=== PATIENT | female | born 1980 | race Caucasian/White ===

== ENCOUNTER 2019-12-21 09:31 | Emergency (ER) | payer BC, OTHER ==
[2019-12-21] MEDS ORDERED: DIAZEPAM 5 MG TABLET ONE (10:47)
[2019-12-21] MEDS ORDERED: FAMOTIDINE 20 MG TAB ONE (10:48)
[2019-12-21] MEDS ORDERED: dexAMETHasone 4 MG TAB ONE ×2 (10:48)
--- OUTSIDE RECORDS SUMMARY | 2019-12-21 10:52 | XMS REPORT | Continuity of Care Document ---
:1980 Author Organization [facility] t Address [address] [place] [address] Care Team Providers Name Role Phone Loreto Ambriz DO Attending Clinician Doctor Unassigned, Name Attending Clinician Unavailable Mike GIPSON Attending Clinician Unavailable Jae GOLDBERG M Attending Clinician Pob1, [facility] Attending Clinician Unavailable Payers Payer Name Policy Type Policy Number Effective Date Expiration Date S ource Problems This patient has no known problems. Allergies, Adverse Reactions, Alerts Allergy Allergy Status Severity Reaction(s) Onset Inactive Treating Comm ents Source Name Type Date Date Clinician NSAIDS DA Active [place] [facility] (Non-[facility] 4-20 [place] roidal 00:00: [facility] Anti-Inf 00 [facility] Medications This patient has no known medications. Procedures This patient has no known procedures. Encounters Start End Encounter Admission Attending Care Care Encounter Source Date/Time Date/Time Type Type Clinicians Facility Department ID 2019-07-20 2019-07-20 Emergency ROLANDO Ambriz [id number] 14:15:44 15:15:00 Lexis Cohen [id number] [place] [id number] [id number] 2019-07-20 2019-07-20 Orders Doctor LUPIS [id number] 00:00:00 00:00:00 Only Unassigned, MARCIO [id number] [place] [facility] [id number] 2019-07-17 2019-07-17 Nurse LUPIS Mckeon [id number] 00:00:00 00:00:00 Triage Kym BUCKLEY [id number] [facility] [id number] 2019-07-17 2019-07-17 Telephone [place] [facility] [id number] 00:00:00 00:00:00 , [facility] [id number] M [place] [id number] [facility] [phone] nal [address] 2019-07-15 2019-07-15 Office Pob1, Acute [facility] [id number] 11:32:41 12:57:26 Visit [facility] [id number] [place] [id number] [facility] [phone] nal [address] Results This patient has no known results.
--- NOTE | 2019-12-21 11:35 | RAD REPORT ---
EXAM DESCRIPTION: RAD - Thoracic Spine Ap/Lat - 12/21/2019 11:15 am CLINICAL HISTORY: Back pain FINDINGS: The bones are osteoporotic. No fracture or dislocation Mild spondylosis involves the thoracic spine
--- NOTE | 2019-12-21 12:01 | ER ---
Nurse's Notes [facility] Name: Naye Holguin Age: 39 yrs Sex: Female : 1980 Arrival Date: 12/21/2019 Time: 09:32 Bed 23 Private MD: Bobo Warner Diagnosis: Thoracic pain;Muscle spasm of back;Osteoporosis without current pathological fracture Presentation: 12/20 10:07 Chief complaint: Patient states: mid back pain started this morning, feels like muscle iw spasms, something popped in it on Nov 23 while at work, this morning everything got really tight and it hurt to breath or move. Coronavirus screen: At this time, the client does not indicate any symptoms associated with coronavirus-19. Ebola Screen: Patient negative for fever greater than or equal to 101.5 degrees Fahrenheit, and additional compatible Ebola Virus Disease symptoms Patient denies exposure to infectious person. Patient denies travel to an Ebola-affected area in the 21 days before illness onset. No symptoms or risks identified at this time. Initial Sepsis Screen: Does the patient meet any 2 criteria? No. Patient's initial sepsis screen is negative. Does the patient have a suspected source of infection? No. Patient's initial sepsis screen is negative. Risk Assessment: Do you want to hurt yourself or someone else? Patient reports no desire to harm self or others. Onset of symptoms was November. 10:07 Method Of Arrival: Ambulatory iw 10:07 Acuity: QUOC 4 iw Historical: - Allergies: 10:09 NSAIDS; iw - PMHx: 10:09 mitral valve prolapse; iw - PSHx: 10:09 ; wrist surg; iw Screenin:33 Abuse screen: Denies threats or abuse. Nutritional screening: No deficits noted. em Tuberculosis screening: No symptoms or risk factors identified. Fall Risk None identified. Assessment: 10:30 General: Appears in no apparent distress. uncomfortable, Behavior is calm, cooperative, em appropriate for age. Pain: Complains of pain in T12 and T11 Pain currently is 10 out of 10 on a pain scale. Neuro: Level of Consciousness is awake, alert, obeys commands, Oriented to person, place, time, situation, Appropriate for age Denies paresthesias. Cardiovascular: Capillary refill < 3 seconds Patient's skin is warm and dry. Respiratory: Airway is patent Respiratory effort is even, unlabored, Respiratory pattern is regular, symmetrical. GI: Abdomen is flat, Patient currently denies nausea, vomiting. Derm: Skin is intact, is healthy with good turgor, Skin is pink, warm \T\ dry. Musculoskeletal: Capillary refill < 3 seconds, Range of motion: intact in all extremities. 11:37 Reassessment: pt reports pain is still a 9/10 after pain medication, provider notified em Patient states symptoms have not improved. Vital Signs: 10:07 BP 142 / 100; Pulse 91; Resp 16; Temp 98.9; Pulse Ox 100% on R/A; Weight 83.91 kg; iw Height 5 ft. 9 in. (175.26 cm); Pain 10/10; 11:37 BP 121 / 88; Pulse 80; Resp 18; Pulse Ox 100% on R/A; Pain 9/10; em 10:07 Body Mass Index 27.32 (83.91 kg, 175.26 cm) iw ED Course: 09:32 Patient arrived in ED. ag5 09:32 Bobo Warner MD is Private Physician. ag5 09:43 Heike Barajas [facility]-C [facility]. snw 09:43 Kelvin Hall MD is Attending Physician. snw 10:09 Triage completed. iw 10:27 Cash Thomas, RN is Primary Nurse. em 10:33 Patient has correct armband on for positive identification. Bed in low position. Call em light in reach. Pulse ox on. NIBP on. 10:34 Arm band placed on. em 11:14 XRAY Thoracic Spine (Ap/lat) In Process Unspecified. EDMS 11:59 Bobo Warner MD is Referral Physician. snw 12:06 No provider procedures requiring assistance completed. Patient did not have IV access em during this emergency room visit. Administered Medications: 10:40 Drug: Valium 5 mg Route: PO; em 11:40 Follow up: Response: No adverse reaction; Pain is unchanged, physician notified em 10:40 Drug: Decadron 8 mg Route: PO; em 11:40 Follow up: Response: No adverse reaction em 10:40 Drug: Pepcid 20 mg Route: PO; em 11:40 Follow up: Response: No adverse reaction em Outcome: 12:00 Discharge ordered by MD. zendejas 12:26 Discharged to home ambulatory. em 12: Condition: stable 12:26 Discharge instructions given to patient, Instructed on discharge instructions, follow up and referral plans. medication usage, Demonstrated understanding of instructions, follow-up care, medications, Prescriptions given X 3. 12:28 Patient left the ED. em Signatures: Dispatcher [employer] EDHeike Esteban, EDUARDO-C PUMP STATION OPERATOR-Cash García RN RN em Williams, Irene, RN RN iw Gaskin, Ajare ag5
--- NOTE | 2019-12-21 12:01 | EDPHYS ---
Physician Documentation [facility] Name: Naye Holguin Age: 39 yrs Sex: Female : 1980 Arrival Date: 12/21/2019 Time: 09:32 Bed 23 Private MD: Bobo Warner ED Physician Kelvin Hall HPI: 12/20 10:35 This 39 yrs old Female presents to ER via Ambulatory with complaints of Back snw Pain. 10:35 The patient presents with pain that is acute. The symptoms are located in the T11, T12 snw and L1. Onset: The symptoms/episode began/occurred suddenly, November 23 area began hurting and pt felt a pop. Today area became suddenly, increasingly painful. The pain does not radiate. Associated signs and symptoms: Pertinent negatives: urinary retention, vomiting, weakness. The problem was sustained lifting lid of fishtank at work on Nov 23. Severity of symptoms: At their worst the symptoms were severe, earlier today. The patient has not experienced similar symptoms in the past. It is unknown whether or not the patient has recently seen a physician. Historical: - Allergies: 10:09 NSAIDS; iw - PMHx: 10:09 mitral valve prolapse; iw - PSHx: 10:09 ; wrist surg; iw ROS: 10:35 Constitutional: Negative for fever, chills, and weight loss, Eyes: Negative for injury, snw pain, redness, and discharge, ENT: Negative for injury, pain, and discharge, Neck: Negative for injury, pain, and swelling, Cardiovascular: Negative for chest pain, palpitations, and edema, Respiratory: Negative for shortness of breath, cough, wheezing, and pleuritic chest pain, Abdomen/GI: Negative for abdominal pain, nausea, vomiting, diarrhea, and constipation, : Negative for injury, bleeding, discharge, and swelling, MS/Extremity: Negative for injury and deformity, Skin: Negative for injury, rash, and discoloration, Neuro: Negative for headache, weakness, numbness, tingling, and seizure, Psych: Negative for depression, anxiety, suicide ideation, homicidal ideation, and hallucinations. 10:35 Back: Positive for decreased range of motion, pain at rest, pain with movement, of the lumbar area. Exam: 10:35 Constitutional: This is a well developed, well nourished patient who is awake, alert, snw and in no acute distress. Head/Face: Normocephalic, atraumatic. Eyes: Pupils equal round and reactive to light, extra-ocular motions intact. Lids and lashes normal. Conjunctiva and sclera are non-icteric and not injected. Cornea within normal limits. Periorbital areas with no swelling, redness, or edema. ENT: Nares patent. No nasal discharge, no septal abnormalities noted. Tympanic membranes are normal and external auditory canals are clear. Oropharynx with no redness, swelling, or masses, exudates, or evidence of obstruction, uvula midline. Mucous membranes moist. Neck: Trachea midline, no thyromegaly or masses palpated, and no cervical lymphadenopathy. Supple, full range of motion without nuchal rigidity, or vertebral point tenderness. No Meningismus. Chest/axilla: Normal chest wall appearance and motion. Nontender with no deformity. No lesions are appreciated. Cardiovascular: Regular rate and rhythm with a normal S1 and S2. No gallops, murmurs, or rubs. Normal PMI, no JVD. No pulse deficits. Respiratory: Lungs have equal breath sounds bilaterally, clear to auscultation and percussion. No rales, rhonchi or wheezes noted. No increased work of breathing, no retractions or nasal flaring. Abdomen/GI: Soft, non-tender, with normal bowel sounds. No distension or tympany. No guarding or rebound. No evidence of tenderness throughout. Skin: Warm, dry with normal turgor. Normal color with no rashes, no lesions, and no evidence of cellulitis. MS/ Extremity: Pulses equal, no cyanosis. Neurovascular intact. Full, normal range of motion. Neuro: Awake and alert, GCS 15, oriented to person, place, time, and situation. Cranial nerves II-XII grossly intact. Motor strength 5/5 in all extremities. Sensory grossly intact. Cerebellar exam normal. Normal gait. Psych: Awake, alert, with orientation to person, place and time. Behavior, mood, and affect are within normal limits. 10:35 Back: pain, that is moderate, of the lumbar area, ROM is painful, decreased, with flexion, normal spinal alignment noted, CVA tenderness, is absent, muscle spasm, is appreciated in the mid back area. Vital Signs: 10:07 BP 142 / 100; Pulse 91; Resp 16; Temp 98.9; Pulse Ox 100% on R/A; Weight 83.91 kg; iw Height 5 ft. 9 in. (175.26 cm); Pain 10/10; 11:37 BP 121 / 88; Pulse 80; Resp 18; Pulse Ox 100% on R/A; Pain 9/10; em 10:07 Body Mass Index 27.32 (83.91 kg, 175.26 cm) iw MDM: 10:30 Patient medically screened. snw 12:21 Data reviewed: vital signs, nurses notes. Data interpreted: Pulse oximetry: on room air snw is 100 %. Interpretation: normal. Counseling: I had a detailed discussion with the patient and/or guardian regarding: the historical points, exam findings, and any diagnostic results supporting the discharge/admit diagnosis, radiology results, the need for outpatient follow up, for definitive care, to return to the emergency department if symptoms worsen or persist or if there are any questions or concerns that arise at home. 12/20 10:20 Order name: XRAY Thoracic Spine (Ap/lat); Complete Time: 11:37 snw Administered Medications: 10:40 Drug: Valium 5 mg Route: PO; em 11:40 Follow up: Response: No adverse reaction; Pain is unchanged, physician notified em 10:40 Drug: Decadron 8 mg Route: PO; em 11:40 Follow up: Response: No adverse reaction em 10:40 Drug: Pepcid 20 mg Route: PO; em 11:40 Follow up: Response: No adverse reaction em Disposition: 16:22 Co-signature as Attending Physician, Kelvin Hall MD. rn Disposition: 12/21/19 12:00 Discharged to Home. Impression: Thoracic pain, Muscle spasm of back, Osteoporosis without current pathological fracture. - Condition is Stable. - Discharge Instructions: Muscle Cramps and Spasms, Back Injury Prevention, [id number], Muscle Cramps and Spasms, [id number], Back Exercises, [id number], Heat Therapy. - Prescriptions for Tramadol 50 mg Oral Tablet - take 1 tablet by ORAL route every 8 hours as needed; 12 tablet. orphenadrine citrate 100 mg Oral Tablet Sustained Release - take 1 tablet by ORAL route 2 times per day As needed; 20 tablet. Prednisone 20 mg Oral Tablet - take 2 tablet by ORAL route once daily for 5 days; 10 tablet. - Work release form, Medication Reconciliation Form, Thank You Letter, Antibiotic Education, Prescription Opioid Use form. - Follow up: Bobo Warner MD; When: 2 - 3 days; Reason: Recheck today's complaints, Continuance of care, Re-evaluation by your physician. Follow up: Emergency Department; When: As needed; Reason: Worsening of condition. Signatures: Dispatcher [employer] EDHeike Esteban FNP-C PLANISHER-Csnw Cash Thomas, LEONELA RN em Edith Ambriz RN RN iw Kelvin Hall MD MD financial intern: (The following items were deleted from the chart) 12:28 12:00 12/21/2019 12:00 Discharged to Home. Impression: Thoracic pain; Muscle spasm of em back; Osteoporosis without current pathological fracture. Condition is Stable. Forms are Medication Reconciliation Form, Thank You Letter, Antibiotic Education, Prescription Opioid Use. Follow up: Bobo Warner; When: 2 - 3 days; Reason: Recheck today's complaints, Continuance of care, Re-evaluation by your physician. Follow up: Emergency Department; When: As needed; Reason: Worsening of condition. snw
== END 2019-12-21 12:28 | disposition home or self-care (01) ==
LOC: ER 09:31
DX: M62.830 Muscle spasm of back (principal); M81.8 Other osteoporosis without current pathological fracture; Z88.6 Allergy status to analgesic agent
CPT/HCPCS: 72070; J8540 ×2; 99284

== ENCOUNTER 2021-02-28 09:30 | Day surgery (SDC) | payer BC ==
[2021-02-22 15:26] LABS: Absolute Lymphocytes (CBC) 2.1 K/uL (0.7-4.9); Basophils % 0.4 % (0-1.3); Hematocrit 43.7 % (36.0-45.0); Lymphocytes % 26.1 % (15.3-44.8); MPV 8.8 fL (7.6-11.3); RBC Red Blood Cell Count 4.67 M/uL (3.86-4.86)
[2021-02-23 12:56] LABS: Protime INR 1.02
[2021-02-28] MEDS ORDERED: Ringers Lactate 1,000 ML IV ONE (09:50)
[2021-02-28] MEDS ORDERED: CEFAZOLIN/SWI 2gm 2 GM/20 ML SYR ONE (10:56)
[2021-02-28] MEDS ORDERED: LIDOCAINE 1% W/EPI 1:100,000 MDV 20 ML VIAL ONE (11:10)
[2021-02-28] MEDS ORDERED: MIDAZOLAM HCL 2 MG/2 ML INJ ONE (11:16)
[2021-02-28] MEDS ORDERED: FENTANYL CITR 100 MCG/2 ML ONE ×2 (11:16→12:13)
[2021-02-28] MEDS ORDERED: propofoL 200 MG/20 ML VIAL IV ONE (11:16)
[2021-02-28] MEDS ORDERED: ONDANSETRON 4 MG/2 ML VIAL ONE (11:18)
[2021-02-28] MEDS ORDERED: dexAMETHasone 10 MG/ML VIAL ONE (11:41)
[2021-02-28] MEDS ORDERED: MEPERIDINE HCL 25 MG/ML SYR IM PRN (13:17)
[2021-02-28] MEDS ORDERED: HYDROCODONE/APAP 5/325 MG TAB PO PRN (13:17)
[2021-02-28] MEDS ORDERED: PROMETHAZINE INJ 25 MG/ML AMP IV PRN (13:17)
--- NOTE | 2021-02-28 13:20 | P.BOP ---
Preoperative diagnosis: labial hypertrophy bilateral Postoperative diagnosis: same Primary procedure: bilateral labial reduction and labioplasty Top And Seat Cover Fitter: NONE,NONE Estimated blood loss: minimal Specimen: bilateral labia minora Findings: R>L, both elongated, right hypertrophied Anesthesia: General Complications: None Transferred to: Recovery Room Condition: Good
[2021-02-28 14:04] VITALS: BP 120/72; TEMP 97.4; O2SAT 100
[2021-02-28] MEDS ORDERED: HYDROCODONE/APAP 5/325 MG TAB ONE (14:22)
== END 2021-02-28 14:37 | disposition home or self-care (01) ==
LOC: OR 09:30
PROVIDERS: ATTEND Obstetrics & Gynecology
PROC: 0UBMXZZ Excision of Vulva, External Approach (ICD-10-PCS; principal; 2021-02-28 12:00)
DX: N90.60 Unspecified hypertrophy of vulva (principal); Z20.822 Contact with and (suspected) exposure to COVID-19
CPT/HCPCS: 56620; 85025; 36415 ×2; 81025; 85610; 88302; 85730; U0002; J2704; J2250; J3010 ×2; J1100; J0690; J7120; J2405; 88304